=== PATIENT | male | born 1985 | race Caucasian/White ===

== ENCOUNTER 2017-08-10 14:39 | Emergency (ER) | payer BC ==
[2017-08-10 14:43] VITALS: BP 118/61; BMI 51.7
[2017-08-10] MEDS ORDERED: NS 1000 ML 1,000 ML ONE (14:47)
[2017-08-10] MEDS ORDERED: NS 1000 ML 1,000 ML IV ONE ×2 (14:55→15:06)
[2017-08-10] MEDS ORDERED: ZOFRAN INJ 4 MG VIAL IVP ONE ×2 (14:55→15:06)
[2017-08-10] MEDS ORDERED: ZOFRAN INJ 4 MG VIAL ONE (14:57)
--- NOTE | 2017-08-10 15:09 | DR.GENAD ---
HPI - PCP Primary Care Physician: NFD - Complaint/Symptoms Chief Complaint Doctors Comments: Patient complains of nausea, vomiting, diarrhea for the past 14 hours with headache. states he has been dealing with the problem at home but could not get rid of the nausea is why he came to the hospital. States he has had multiple episodes of diarrhea and vomiting today. States he had nathan yesterday but his family had the same food. He denies chest pain, SOB, hematuria or any recent trauma. He denies chest pain. Chief Complaint:: PT. C/O NAUSEA, VOMITING, AND DIARRHEA X 14 HOURS WITH FEVER. PT. ALSO C/O HEADACHE. - Nurses notes reviewed Nurses Notes Review: Yes - Source History Provided: Patient - Mode of Arrival Mode of Arrival: Ambulatory - Timing Onset of Chief Complaint: 08/09/17 Came on: Gradually - Duration Duration: Constant How lon Duration: Hours - Location Location: right CVA tenderness - Severity Severity: Mild - Modifying Factors Worsens:: nothing Improves:: nothing PMH - PMH Past Medical History: No Past Surgical History: Yes Surgical History: Cholecystectomy - Family History History of Family Medical Conditions: No - Social History Does patient currently use any type of tobacco product: No Have you used tobacco products in the last 12 months: No Type of Tobacco Use: None Does any household member use tobacco: No Alcohol Use: None Do you use any recreational Drugs:: No Lives With: Spouse Lives Where: Home - infectious screening In the last 2 months have you had wt loss of >10#?: NO Have you had fever, night sweats or hemotysis?: No Have you traveled outside the country in the last 6 months?: No Isolation: Standard ROS - Review of Systems Constitutional: No Symptoms Reported, Weakness Eyes: No Symptoms Reported. negative: See HPI, Eye Pain, Blurred Vision, Tearing, Discharge, Photophobia, Diplopia, Other ENTM: No Symptoms Reported Respiratoy: No Symptoms Reported. negative: See HPI, Productive Cough, Non- Productive Cough, Moist Cough, Dry Cough, Hacking Cough, Barking Cough, Brassy Cough, Orthopnea, Short of Breath, Stridor, Wheezing, Hemoptysis, Other Cardiovascular: No Symptoms Reported Gastrointestinal/Abdominal: No Symptoms Reported, Abdominal Pain, Diarrhea, Nausea, Vomiting. negative: See HPI, Constipation, Food Intolerance, Other Genitourinary: No Symptoms Reported. negative: See HPI, Discharge, Dysuria, Frequency, Hematuria, Pain, Bleeding, Other Neurological: No Symptoms Reported Musculoskeletal: No Symptoms Reported Integumentary: No Symptoms Reported. negative: See HPI, Change in Color, Change in Hair/Nails, Dryness, Lesions, Lumps, Rash, Itching, Wound, Bruises, Juandice, Other Hematologic/Lymphatic: No Symptoms Reported Endocrine: No Symptoms Reported Psychiatric: No Symptoms Reported. negative: See HPI, Anxiety, Depression, Hallucinations, Excessive crying, Suicidal, Other PE - Vital Signs Vitals: Temperature 99.1 F Pulse Rate 127 Respiratory Rate 19 Blood Pressure 118/61 O2 Sat by Pulse Oximetry 96 - General Limitations: No Limitations General Appearance: Alert, In Distress (mild) - Head Head Exam: Normal Inspection, Atraumatic, Normocephalic - Eyes Eye exam: Normal Appearance, PERRL, EOMI. negative: Scleral Icterus, Conjunctival Injection, Nystagmus, Miosis, Mydrasis, Periorbital Swelling, Periorbital Tenderness, Other - ENT ENT Exam: Normal Exam, Normal Oropharynx, Normal External Ear Exam, Mucous Membranes Moist, TM's Normal Bilaterally External Ear Exam: Normal External Inspection TM/Canal Exam: Bilateral Normal Nose Exam: Normal Nose Exam. negative: Sinus Tenderness (nasal congestion with erythematous left nostril) Mouth Exam: Normal Inspection Throat Exam: Normal Inspection, Tonsillar Erythema - Neck Neck Exam: Normal Inspection, Full ROM, Trachea Midline - Chest Chest Inspection: Normal Inspection, Symmetric Chest Wall Rise - Respiratory Respiratory Exam: Normal Lung Sounds Bilat Respiratory Exam: Bilateral Clear to Auscultation - Cardiovascular Cardiovascular Exam: Regular Rate, Normal Rhythm, Normal Heart Sounds - Abdominal Exam Abdominal Exam: Normal Inspection, Normal Bowel Sounds, Tenderness (slight epigastric tenderness) Abdominal Tenderness: Epigastrium, Mild - Extremities Extremities Exam: Normal Inspection, Full ROM, Tenderness, Normal Capillary Refill - Back Back Exam: Normal Inspection, Full ROM - Neurologic Neurological Exam: Alert, Oriented X3, CN II-XII Intact, Normal Gait, Reflexes Normal - Psychiatric Psychiatric Exam: Normal Affect, Normal Mood - Skin Skin Exam: Warm, Dry, Intact, Normal Color ROR - Labs Reviewed Laboratory Results Reviewed?: Yes (all labs and xray results reviewed and discussed with patient.) Result Diagrams: 08/10/17 15:05 08/10/17 15:05 Laboratory: WBC 9.9 X10^3/uL (3.6-10.0) 08/10/17 15:05 RBC 5.12 X10^6/uL (4.7-6.0) 08/10/17 15:05 Hgb 14.7 g/dL (13.5-18.0) 08/10/17 15:05 Hct 42.6 % (42.0-54.0) 08/10/17 15:05 MCV 83.2 fL (80.0-100.0) 08/10/17 15:05 MCH 28.8 pg (27.0-34.0) 08/10/17 15:05 MCHC 34.6 g/dL (33.0-35.0) 08/10/17 15:05 RDW 13.3 % (11.6-16.5) 08/10/17 15:05 Plt Count 177 X10^3/uL (150.0-450.0) 08/10/17 15:05 MPV 9.2 fL (7.4-11.0) 08/10/17 15:05 Neut % 88.6 % (42.0-75.0) H 08/10/17 15:05 Lymph % 7.6 % (21.0-51.0) L 08/10/17 15:05 [place] % 3.3 % (0.0-13.0) 08/10/17 15:05 Eos % 0.0 % (0.9-2.9) L 08/10/17 15:05 Baso % 0.5 % (0.2-1.0) 08/10/17 15:05 Neut # 8.8 x10^3/uL (2.2-4.8) H 08/10/17 15:05 Lymph # 0.8 X10^3/uL (1.3-2.9) L 08/10/17 15:05 [place] # 0.3 x10^3/uL (0.3-0.8) 08/10/17 15:05 Eos # 0.0 x10^3/uL (0.0-0.2) 08/10/17 15:05 Baso # 0.0 X10^3/uL (0.0-0.1) 08/10/17 15:05 Absolute Nucleated RBC 0.0 /100WBC 08/10/17 15:05 Sodium 140 mmol/L (136-145) 08/10/17 15:05 Corrected Sodium TNP 08/10/17 15:05 Potassium 3.8 mmol/L (3.5-5.1) 08/10/17 15:05 Chloride 104 mmol/L (98-107) 08/10/17 15:05 Carbon Dioxide 26.5 mmol/L (21-32) 08/10/17 15:05 BUN 17 mg/dL (7-18) 08/10/17 15:05 Creatinine 1.24 mg/dL (0.70-1.30) 08/10/17 15:05 Est GFR (MDRD) Af Amer > 60 (>60) 08/10/17 15:05 Est GFR (MDRD) Non-Af > 60 (>60) 08/10/17 15:05 Glucose 102 mg/dL (65-99) H 08/10/17 15:05 Calcium 8.6 mg/dL (8.5-10.1) 08/10/17 15:05 Corrected Calcium TNP 08/10/17 15:05 Total Bilirubin 0.70 mg/dL (0.2-1.0) 08/10/17 15:05 AST 19 Units/L (15-37) 08/10/17 15:05 ALT 38 Units/L (12-78) 08/10/17 15:05 Alkaline Phosphatase 62 Units/L (46-116) 08/10/17 15:05 Total Protein 7.6 g/dL (6.4-8.2) 08/10/17 15:05 Albumin 3.7 g/dL (3.4-5.0) 08/10/17 15:05 Globulin 3.9 g/dL (2.5-4.5) 08/10/17 15:05 Albumin/Globulin Ratio 0.9 Ratio (1.1-2.1) L 08/10/17 15:05 Amylase 42 Units/L (25-115) 08/10/17 15:05 Lipase 88 Units/L (73-393) 08/10/17 15:05 Specimen Type Clean catch urine 08/10/17 16:03 Urine Color [place] (YELLOW) 08/10/17 16:03 Urine Appearance Slightly hazy (CLEAR) 08/10/17 16:03 Urine pH 5.0 (5.0 - 8.0) 08/10/17 16:03 Ur Specific Tow 1.020 (1.000-1.030) 08/10/17 16:03 Urine Protein Negative (NEGATIVE) 08/10/17 16:03 Urine Glucose (UA) Negative (NEGATIVE) 08/10/17 16:03 Urine Ketones Negative (NEGATIVE) 08/10/17 16:03 Urine Occult Blood 3+ (NEGATIVE) 08/10/17 16:03 Urine Nitrite Negative (NEGATIVE) 08/10/17 16:03 Urine Bilirubin Negative (NEGATIVE) 08/10/17 16:03 Urine Urobilinogen Normal (NORMAL) 08/10/17 16:03 Ur Leukocyte Esterase Negative (NEGATIVE) 08/10/17 16:03 Urine RBC 0-2 /HPF (NEGATIVE) 08/10/17 16:03 Urine WBC None seen /HPF (NEGATIVE) 08/10/17 16:03 Ur Squamous Epith Cells Rare /HPF (NEGATIVE) 08/10/17 16:03 Urine Bacteria Negative /HPF (NEGATIVE) 08/10/17 16:03 Ur Culture Indicated? No/not indicated 08/10/17 16:03 Influenza Type A (PCR) Negative (NEGATIVE) 08/10/17 14:59 Influenza Type B (PCR) Negative (NEGATIVE) 08/10/17 14:59 - XRAY XRAY Interpreted by: Radiologist (Abdominal survey: Jaz cute cardiopulmonay disease. No evidence for aut abdominal pathology) - Diagnosis Discharge Problem: Gastroenteritis Sinusitis, acute Qualifiers: Sinusitis location: frontal - Discharge Plan Disposition: HOME, SELF-CARE Condition: Stable Prescriptions: Ciprofloxacin HCl [CIPRO 500 MG TAB *] 500 mg PO Q12H #20 tab Fluticasone Nasal [place] [FLONASE NASAL SPRAY *] 2 sprays ENOSTRIL DAILY #1 each Loratadine [Claritin] 10 mg PO DAILY #30 tab Ondansetron HCl [Zofran Tab 4 mg] 4 mg PO Q8H PRN #18 tab PRN Reason: Nausea/Vomiting - Follow ups/Referrals Follow ups/Referrals: NFD,None [Primary Care Provider] - 3 days Stuart Anton [STAFF PHYSICIAN] - 3 days - Instructions Instructions: Viral Gastroenteritis, Adult, [id number], Contact Precautions, Sinusitis, Adult, [id number]
[2017-08-10 15:23] LABS: BASOPHILS % (AUTO) 0.5 % (0.2-1.0); HEMATOCRIT 42.6 % (42.0-54.0); HEMOGLOBIN 14.7 g/dL (13.5-18.0); LYMPHOCYTES # (AUTO) 0.8 X10^3/uL (1.3-2.9); LYMPHOCYTES % (AUTO) 7.6 % (21.0-51.0); MEAN CORPUSCULAR HEMOGLOBIN 28.8 pg (27.0-34.0); MEAN CORPUSCULAR HGB CONC 34.6 g/dL (33.0-35.0); MEAN CORPUSCULAR VOLUME 83.2 fL (80.0-100.0); MEAN PLATELET VOLUME 9.2 fL (7.4-11.0); MONOCYTES # (AUTO) 0.3 x10^3/uL (0.3-0.8); MONOCYTES % (AUTO) 3.3 % (0.0-13.0); NEUTROPHILS # (AUTO) 8.8 x10^3/uL (2.2-4.8); NEUTROPHILS % (AUTO) 88.6 % (42.0-75.0); PLATELET COUNT 177 X10^3/uL (150.0-450.0); RED BLOOD COUNT 5.12 X10^6/uL (4.7-6.0); RED CELL DISTRIBUTION WIDTH 13.3 % (11.6-16.5); WHITE BLOOD COUNT 9.9 X10^3/uL (3.6-10.0)
[2017-08-10 15:31] LABS: ALANINE AMINOTRANSFERASE 38 Units/L (12-78); ALBUMIN 3.7 g/dL (3.4-5.0); ALKALINE PHOSPHATASE 62 Units/L (46-116); AMYLASE 42 Units/L (25-115); ASPARTATE AMINO TRANSFERASE 19 Units/L (15-37); BLOOD UREA NITROGEN 17 mg/dL (7-18); CALCIUM 8.6 mg/dL (8.5-10.1); CARBON DIOXIDE 26.5 mmol/L (21-32); CHLORIDE 104 mmol/L (98-107); CREATININE 1.24 mg/dL (0.70-1.30); LIPASE 88 Units/L (73-393); SODIUM 140 mmol/L (136-145); TOTAL PROTEIN 7.6 g/dL (6.4-8.2); eGFR BLACK RACES > 60 (>60); eGFR NON BLACK RACES > 60 (>60)
[2017-08-10] MEDS ORDERED: TORADOL 30 MG VIAL IVP ONE (16:02)
[2017-08-10] MEDS ORDERED: TORADOL 60 MG VIAL ONE (16:03)
[2017-08-10 16:10] LABS: BILIRUBIN,URINE NEGATIVE (NEGATIVE); BLOOD/HEMOGLOBIN,URINE 3+ (NEGATIVE); GLUCOSE, URINE NEGATIVE (NEGATIVE); KETONES,URINE NEGATIVE (NEGATIVE); LEUKOCYTE ESTERASE ,URINE NEGATIVE (NEGATIVE); NITRITES,URINE NEGATIVE (NEGATIVE); PROTEIN,URINE NEGATIVE (NEGATIVE); UROBILINOGEN,URINE NORMAL (NORMAL)
[2017-08-10 16:25] LABS: APPEARANCE,URINE SLIGHTLY HAZY (CLEAR); RBC,URINE 0-2 /HPF (NEGATIVE); SQUAMOUS EPITHELIAL CELL,UR RARE /HPF (NEGATIVE)
[2017-08-10 16:26] LABS: BACTERIA,URINE NEGATIVE /HPF (NEGATIVE); COLOR,URINE AMBER (YELLOW)
--- NOTE | 2017-08-10 16:38 | RAD ---
HISTORY: Nausea vomiting and diarrhea Study: Acute abdominal series Comparison: none Findings: The trachea is midline. The cardiac silhouette is unremarkable. The lungs are clear without focal i nfiltrate or effusion. The bony thorax is unremarkable. Flat plate and upright evaluation of the abdomen demonstrates a normal bowel gas pattern. No patholo gical soft tissue mass or calcification can be observed. The bony structures are grossly intact. IMPRESSION: 1. No acute cardiopulmonary disease. 2. No evidence for acute abdominal pathology identified. Reported By:
[2017-08-10] MEDS ORDERED: LEVAQUIN TAB 500 MG PO STA (16:54)
[2017-08-10] MEDS ORDERED: LEVAQUIN TAB 500 MG ONE (16:59)
== END 2017-08-10 17:04 | disposition home or self-care (01) ==
LOC: ER 14:39
DX: K52.89 Other specified noninfective gastroenteritis and colitis (principal); J01.80 Other acute sinusitis
CPT/HCPCS: 36415; 74022; 80053; 81001; 82150; 83690; 85025; 87502; 96365; 96374; 96375; 99282; 99283; A4216; A4222; J1885; J2405

== ENCOUNTER 2017-11-22 07:21 | Day surgery (SDC) | payer BC ==
[2017-11-22] MEDS ORDERED: D5 LR 1000 ML 1,000 ML IV ONE (07:36)
[2017-11-22] MEDS ORDERED: DIPRIVAN VIAL 20 ML ONE ×2 (08:03→08:14)
[2017-11-22] MEDS ORDERED: XYLOCAINE 2 % (PLAIN) ONE (08:03)
[2017-11-22] MEDS ORDERED: VERSED ONE (08:08)
[2017-11-22] MEDS ORDERED: MARCAINE 0.5% ONE (08:14)
[2017-11-22 08:57] VITALS: BP 148/87
[2017-11-22] MEDS ORDERED: BOTOX ONE (16:05)
== END 2017-11-22 09:03 | disposition home or self-care (01) | DRG 392 ==
LOC: SURG1 07:21
PROVIDERS: ATTEND Surgery
PROC: 0DBH8ZX Excision of Cecum, Via Natural or Artificial Opening Endoscopic, Diagnostic (ICD-10-PCS; 2017-11-22)
PROC: 3E0H8GC Introduction of Other Therapeutic Substance into Lower GI, Via Natural or Artificial Opening Endoscopic (ICD-10-PCS; 2017-11-22)
PROC: 0DJD8ZZ Inspection of Lower Intestinal Tract, Via Natural or Artificial Opening Endoscopic (ICD-10-PCS; principal; 2017-11-22 08:30)
DX: R19.4 Change in bowel habit (principal); K62.5 Hemorrhage of anus and rectum; K60.1 Chronic anal fissure; K52.89 Other specified noninfective gastroenteritis and colitis
CPT/HCPCS: S0020; A4217; J0585; J2001; J2250; J3490; J7120